=== PATIENT | male | born 2000 | race Two or more races ===

== ENCOUNTER 2018-05-20 10:33 | Emergency (ER) | payer OTHER ==
[~2018-05-20] VITALS: Ht 177.8 cm; Wt 90.7 kg
== END 2018-05-20 18:33 | disposition home or self-care (01) ==
LOC: ER 10:33
DX: M54.89 Other dorsalgia (principal)

== ENCOUNTER 2021-06-18 09:00 | Outpatient (CLI) | payer OTHER | END 2021-06-18 09:15 | disposition home or self-care (01) | LOC: PPH VACUNA 09:00 | PROVIDERS: ATTEND Emergency Medicine Pediatric Emergency Medicine | DX: Z23 Encounter for immunization (principal) ==